=== PATIENT | male | born 2000 | race African-American/Black ===

== ENCOUNTER 2023-08-28 16:58 | Emergency (ER) | payer OTHER, SELFPAY ==
--- NOTE | ~2023-08-28 | XR_ITS ---
LUMBAR SPINE INDICATION: Generalized low back pain TECHNIQUE: 3 views lumbar spine COMPARISON: None FINDINGS: No fracture, subluxation or dislocation. No evidence for spondylolysis or spondylolisthesi s. Vertebral bodies and disk spaces are preserved. IMPRESSION: 1: No acute abnormality of the lumbar spine identified. Reviewed, dictated and finalized at location A.
[2023-08-28 16:58] VITALS: BP 104/61; PULSE 71; RESP 19; TEMP 36.8; O2SAT 99
--- NOTE | 2023-08-28 17:16 | ED.BACK ---
HPI - Back Pain/Injury General Chief Complaint: Back Pain/Injury Stated Complaint: BACK PAIN Time Seen by Provider: 08/28/23 17:03 Source: patient Mode of arrival: ambulatory Limitations: no limitations History of Present Illness HPI Narrative: Patient is a 23-year-old male with no significant past medical history that presents today with lumbar pain. Patient was at work last week and was lifting heavy boxes and heard his lumbar spine. He was on light restrictions after that and then today return to work no restrictions and was lifting heavy boxes again and then hurt his back again was in a lot of pain. He is here with his mother she states she has never seen them much pain before. He still currently having the lumbar pain. He states it is diffuse across the lumbar spine area. MD elicited complaint: back pain and back injury Onset (ago): day(s) Timing: intermittent Severity: moderate Pain scale (0-10): 5 Similar Symptoms Previously: Yes Quality: stabbing Location: lumbar spine Radiation: buttocks, left upper leg and right upper leg Exacerbating factors: movement Relieving factors: none Context: while lifting Associated symptoms: denies other symptoms Work related injury: Yes Related Data Home Medications Medication Instructions Recorded Confirmed No Home Medications 08/28/23 08/28/23 Allergies Allergy/AdvReac Type Severity Reaction Status Date / Time No Known Allergies Allergy Verified 08/28/23 17:16 Review of Systems Review of Systems: All systems reviewed & are unremarkable except as noted in HPI and below Constitutional: Constitutional: Reports no additional constitutional complaints Eyes: Eyes: Reports as per HPI and Reports no additional eye complaints ENT: Reports system reviewed and no additional complaints, except as documented Cardiovascular: Cardiovascular: Reports no additional cardiovascular complaints Respiratory: Respiratory: Reports no additional respiratory complaints Gastrointestinal: Gastrointestinal: Reports no additional gastrointestinal complaints Genitourinary: Genitourinary: Reports no additional male genitourinary complaints Musculoskeletal: Musculoskeletal: Reports as per HPI and Reports back pain Integumentary/Breasts: Skin/Breast: Reports system reviewed and no additional complaints, except as docu Neurologic: Reports system reviewed and no additional complaints, except as documented Psychiatric: Psychiatric: Reports no additional psychiatric complaints Endocrine: Endocrine: Reports no additional endocrine complaints Hematologic/Lymphatic: Hematologic/Lymphatic: Reports no additional hematologic/lymphatic complaints Exam Const: General: healthy appearing Nutritional Appearance: well nourished Orientation/consciousness: patient oriented x3 HENMT: Head: normal to inspection Ears: external ears normal Face/Nose/Sinus: Normal external nose present Eyes: Conjunctivae: conjunctivae normal Pupils: Equal, round and reactive pupils present EOM: EOMs intact bilaterally Neck: Neck: normal visual inspection Chest: Chest palpation & inspection: normal inspection of the chest Resp: Effort & Inspection: normal respiratory effort Auscultation: clear to auscultation bilaterally Cardio: Rate: regular rate Rhythm: regular rhythm GI: GI Palp: Yes Soft to palpation Auscultation: normal bowel sounds Back/Spine/Pelvis: Back: no CVA tenderness Other: pain to palpation left side of lumbar spine musculature Skin: General skin exam: normal color Rashes: no rashes Wounds: no wounds Neuro: General: patient oriented x3 Extrem: General: normal to inspection Psych: Mental Status: mental status grossly normal Course Reevaluation(s) Reevaluation #1: Xray was negative for any acute process. Patient feels better after the shot of toradol and dex. Date: 08/28/23 Time: 18:15 Vital Signs Vital signs: Vital Signs Temperature 98.2 F 08/28/23 16:58 Puls
[2023-08-28] MEDS: KETOROLAC (*BKC) 60 MG/2 ML VIAL IM (17:31)
[2023-08-28 18:26] VITALS: BP 106/60; PULSE 78; RESP 19; TEMP 37; O2SAT 98
== END 2023-08-28 18:31 | disposition home or self-care (01) ==
PROVIDERS: Emergency Provider Family Medicine
DX: S39.012A Strain of muscle, fascia and tendon of lower back, initial encounter (principal); X50.0XXA Overexertion from strenuous movement or load, initial encounter
CPT/HCPCS: 72100; 96372; 96374; 99284; J1100; J1885